=== PATIENT | male | born 1955 | race Caucasian/White ===

== ENCOUNTER 2020-04-24 11:02 | Outpatient (CLI) | payer MEDICARE, OTHER ==
[2020-04-25 13:12] LABS: SARS-CoV-2 MS2 Positive; SARS-CoV-2 N Gene Negative; SARS-CoV-2 S Gene Negative; SARS-CoV-2 orf1ab Negative
== END 2020-04-24 11:03 | disposition home or self-care (01) ==
LOC: LABBT 11:02
PROVIDERS: ATTEND Neurological Surgery
DX: Z01.812 Encounter for preprocedural laboratory examination (principal); Z11.59 Encounter for screening for other viral diseases; M54.40 Lumbago with sciatica, unspecified side
CPT/HCPCS: 87635; U0003

== ENCOUNTER 2020-04-28 10:57 | Day surgery (SDC) | payer MEDICARE ==
[2020-04-27 11:55] VITALS: BMI 34.8
[2020-04-28] MEDS ORDERED: PROPOFOL 200 MG/20 ML VIAL ONE (11:56)
[2020-04-28] MEDS ORDERED: Lidocaine 1% PF 5 ML VIAL ONE (11:56)
--- NOTE | 2020-04-28 14:08 | MRI ---
MRI Lumbar Spine Noncontrast: HISTORY: Lumbago with left sciatic pain. COMPARISON: None FINDINGS: Subcentimeter signal hyperintensities are seen in the superior and inferior pole right kidney which a re difficult to further characterize on this exam. Conus medullaris is normal in morphology and terminates at the L1 level. An area of increased T1 and T2-weighted signal intensity is seen in the L4 vertebral body likely rela martín to a hemangioma. L1-2: There is no disc bulge or disc herniation. Central spinal canal and neural foramina are patent. L2-3: Mild disc osteophyte complex is present with appears be small focal annular tear involving the left posterolateral margin of the intervertebral disc. Facet hypertrophic changes are present with fluid signal intensity seen in the facet joints. Mild left-sided neural foraminal narrowing is presen t. Right neural foramen is patent. There is slight effacement of the ventral aspect of the thecal sac. L3-4: Mild broad-based disc osteophyte complex present. There are facet hypertrophic changes with flu id signal intensity seen in the facet joints. No significant neural foraminal narrowing is present. Central spinal canal is patent. L4-5: Disc osteophyte complex is present. There are prominent facet hypertrophic changes with fluid s ignal intensity seen in the facet joints. Small subcentimeter synovial cyst is seen posterior to the left facet joints. Mild ligamentous thickening is present. There is generalized mild narrowing of the central spinal canal. No significant neural foraminal narrowing is present. L5-S1: There is a right central and paracentral disc protrusion which results in slight effacement of the right anterolateral aspect of the thecal sac without significant central canal narrowing. Facet hypertrophic changes are seen. Minimal right-sided neural foraminal narrowing is present. The l eft neural foramen is patent. IMPRESSION: 1. Mild multilevel degenerative changes without high-grade central canal or neural foraminal narrowin g. 2. Subcentimeter signal hyperintensities right kidney which are too small to characterize but statist ically are likely related to tiny cysts.
== END 2020-04-28 15:25 | disposition home or self-care (01) ==
LOC: SDC/OP 10:57
PROVIDERS: ATTEND Neurological Surgery
DX: M54.42 Lumbago with sciatica, left side (principal); M71.38 Other bursal cyst, other site; M47.816 Spondylosis without myelopathy or radiculopathy, lumbar region; G89.29 Other chronic pain; I10 Essential (primary) hypertension; Z79.82 Long term (current) use of aspirin; Z79.899 Other long term (current) drug therapy
CPT/HCPCS: 72148; J2704

== ENCOUNTER 2024-08-16 12:18 | Day surgery (SDC) | payer BC, MEDICARE ==
[2024-08-13 10:46] VITALS: BMI 34.8
[2024-08-16] MEDS ORDERED: Lidocaine 1% PF 5 ML VIAL ONE (14:15)
[2024-08-16] MEDS ORDERED: PROPOFOL 200 MG/20 ML VIAL ONE (14:15)
[2024-08-16] MEDS ORDERED: Ondansetron PF 4 MG/2 ML Vial ONE (14:15)
== END 2024-08-16 16:02 | disposition home or self-care (01) ==
LOC: MRI 12:18
PROVIDERS: ATTEND Neurological Surgery
DX: M51.16 Intervertebral disc disorders with radiculopathy, lumbar region (principal); I10 Essential (primary) hypertension; F41.9 Anxiety disorder, unspecified; Z98.890 Other specified postprocedural states; E78.00 Pure hypercholesterolemia, unspecified; M48.061 Spinal stenosis, lumbar region without neurogenic claudication
CPT/HCPCS: 72148; J2405; J2704